=== PATIENT | male | born 1990 | race Caucasian/White ===

== ENCOUNTER → 2021-01-10 | Outpatient (CLI) | payer OTHER ==
[~2021-01-10] MED LIST: ALBU90I INH; ALBU90OI; AZIT500 PO; CEPH500; CEPH500 PO; CRUTCH2 USE; HYDACE5; HYDACE5 PO; IBUP400 PO; IBUP600 PO; Lamisil At24 GM TP; METO50 PO; NAPR500 PO; NICO21TP TOP; OXYACE5T PO; PROM25 PO; Zofran8 MG PO
[2021-01-16 11:15] LABS: Stool Occult Bld Immuno 1 Negative (NEGATIVE)
== END | disposition home or self-care (01) ==
LOC: LAB 22:00 → LAB SHORT 22:00 → LAB FUT 01-12 16:30
PROVIDERS: Nurse Practitioner Family
DX: R10.9 Unspecified abdominal pain (principal)
CPT/HCPCS: G0328

== ENCOUNTER 2021-05-30 09:28 | Day surgery (SDC) | payer OTHER ==
[~2021-05-30] VITALS: Ht 182.9 cm; Wt 160.0 kg
[~2021-05-30 09:28] MED LIST changes: +CELEXA40 M1 PO; +FLUT1DIS5 INH; +LISI20 PO; +SPIR50 PO; +THERA-D2000 UNIT PO
--- NOTE | 2021-05-30 10:48 | NUR ---
Ambulatory in Day Surgery History, Chart, Medications and Allergies reviewed before start of procedure.Patient confirms NPO status and agrees with scheduled surgery.EXPIRATORY WHEEZES T/O, ANESTHESIA NOTIFIED.PT OK PER DR. PEÑA TO RECOVERY FOR APPROX [address]IVE SELF HOME.DR. PEÑA TO WRITE DISCHARGE ORDER SUCH.
--- NOTE | 2021-05-30 11:19 | NUR ---
05/30/21 1119 Nelli Briones HISTORY,CHART, MEDICATIONS AND ALLERGIES REVIEWED BEFORE START OF PROCEDURE. PATIENT CONFIRMS NPO STATUS AND AGREES WITH SCHEDULED PROCEDURE. 3-LEAD EKG REVIEWED WITH PHYSICIAN PRIOR TO START OF PROCEDURE. MONITOR INTACT WITH CONTINUOUS PULSE OXIMETRY AND INTERMITTENT BP. SUPPLEMENTAL O2 TO BE TITRATED THROUGHOUT PROCEDURE TO MAINTAIN O2 SATURATION ABOVE 90%. PATIENT DETERMINED TO BE ASA APPROPRIATE FOR MAC SEDATION PRIOR TO START OF PROCEDURE WITH DR. PEÑA. SEE ANESTHESIA RECORD.
--- NOTE | 2021-05-30 14:01 | NUR ---
PT'S VSS. ATE ALL OF FOOD TRY AND DENIES ANY FURTHER NEEDS AT THIS TIME. PT IS STAYING IN DAY SURGERY FOR 6 HOURS POST OP BECAUSE HE WILL BE DRIVING HIMSELF HOME. WILL CONTINUE TO MONITOR.
--- NOTE | 2021-05-30 14:37 | NUR ---
DR. PEÑA WAS CONSULTED VIA PHONE BY DEEPALI KING TO DISCUSS PT'S D/C PLAN. PT IS STABLE AND MEETS D/C CRITERIA SO DR. PEÑA OKAYED PT TO BE DISCHARGED NOW.
--- NOTE | 2021-05-30 14:39 | NUR ---
Patient up to Ambulate independently. Gait steady. Discharge instructions reviewed with patient. Patient verbalizes understanding. Copy given to patient to take home.
== END 2021-05-30 22:57 | disposition home or self-care (01) ==
LOC: ORSCMMR 09:28 → ORD 11:30 → ORSCMMR 22:57
PROVIDERS: Internal Medicine Gastroenterology
PROC: 0DB98ZX Excision of Duodenum, Via Natural or Artificial Opening Endoscopic, Diagnostic (ICD-10-PCS; principal; 2021-05-30 11:30)
PROC: 0DB48ZX Excision of Esophagogastric Junction, Via Natural or Artificial Opening Endoscopic, Diagnostic (ICD-10-PCS; principal; 2021-05-30 11:30)
PROC: 0DB78ZX Excision of Stomach, Pylorus, Via Natural or Artificial Opening Endoscopic, Diagnostic (ICD-10-PCS; principal; 2021-05-30 11:30)
DX: K90.0 Celiac disease (principal); B96.81 Helicobacter pylori [H. pylori] as the cause of diseases classified elsewhere; K29.70 Gastritis, unspecified, without bleeding; K21.9 Gastro-esophageal reflux disease without esophagitis; K29.80 Duodenitis without bleeding; I10 Essential (primary) hypertension; J45.909 Unspecified asthma, uncomplicated; F17.210 Nicotine dependence, cigarettes, uncomplicated; E66.01 Morbid (severe) obesity due to excess calories; Z68.42 Body mass index [BMI] 45.0-49.9, adult; Z79.899 Other long term (current) drug therapy
CPT/HCPCS: 88305; 88342; J2001; J2250; J2405; J2704; J7120

== ENCOUNTER 2023-03-12 13:23 | Emergency (ER) | payer OTHER ==
[~2023-03-12] VITALS: Ht 182.9 cm; Wt 147.4 kg
[2023-03-12 13:32] VITALS: BP 116/75
[2023-03-12 14:03] LABS: BASOPHILS ABSOLUTE AUTO 0.05 K/mm3 (0.00-0.23); BASOPHILS PERCENT AUTO 0 % (0-2); EOSINOPHILS ABSOLUTE AUTO 0.35 K/mm3 (0.00-0.68); EOSINOPHILS PERCENT AUTO 3 % (0-6); Hematocrit 46.3 % (37.0-53.0); Hemoglobin 15.8 g/dL (13.5-17.5); IMMATURE GRAN ABSOLUTE AUTO 0.05 K/mm3 (0.00-0.10); IMMATURE GRAN PERCENT AUTO 0 % (0-1); LYMPHOCYTES ABSOLUTE AUTO 2.43 K/mm3 (0.84-5.20); LYMPHOCYTES PERCENT AUTO 19 % (21-46); MONOCYTES ABSOLUTE AUTO 0.83 K/mm3 (0.16-1.47); MONOCYTES PERCENT AUTO 6 % (4-13); Mean Corpuscular HGB 31.6 pg (26.0-34.0); Mean Corpuscular HGB Conc 34.1 g/dL (31.5-36.5); Mean Corpuscular Volume 93 fL (80-100); Mean Platelet Volume 9.8 fL (9.1-12.4); NEUTROPHILS ABSOLUTE AUTO 9.35 K/mm3 (1.96-9.15); NEUTROPHILS PERCENT AUTO 72 % (41-73); Platelet Count 302 K/mm3 (150-400); RDW Coefficient Variation 12.5 % (11.7-14.2); RDW Standard Deviation 42.9 fL (35.1-46.3); White Blood Cell Count 13.06 K/mm3 (4.00-11.30)
[2023-03-12 14:42] LABS: Albumin, Blood 3.8 g/dL (3.4-5.0); Bilirubin, Total 0.3 mg/dL (0.1-1.0); Bun/Creatinine Ratio 19.1 (12.0-20.0); Calcium, Blood 8.6 mg/dL (8.5-10.1); Creatinine, Blood 0.84 mg/dL (0.60-1.20); Globulin, Blood 3.7 g/dL (2.2-4.0); Potassium, Blood 4.3 mmol/L (3.5-5.5); Total Protein, Blood 7.5 g/dL (6.4-8.2)
[2023-03-12 15:48] LABS: Source, Urine Clean Catch
[2023-03-12 16:02] LABS: Appearance, Urine Clear (Clear); Bilirubin, Urine Neg (Neg); Blood, Urine Neg (Neg); Color, Urine Yellow (P-Yellow); Glucose Qualitative, Urine Neg (Neg); Ketones, Urine Neg (Neg); Leukocyte Esterase, Urine Neg (Neg); Nitrite, Urine Neg (Neg); Protein, Urine Neg (Neg); Urobilinogen, Urine NORM (Normal)
== END 2023-03-12 16:46 | disposition home or self-care (01) ==
LOC: ER 13:23
PROVIDERS: Student in an Organized Health Care Education/Training Program
DX: M54.50 Low back pain, unspecified (principal); E66.9 Obesity, unspecified; F17.200 Nicotine dependence, unspecified, uncomplicated; Z87.442 Personal history of urinary calculi; Z79.899 Other long term (current) drug therapy; Z68.41 Body mass index [BMI] 40.0-44.9, adult
CPT/HCPCS: 80053; 81003; 83690; 85025; 99284

== ENCOUNTER → 2024-06-28 | Outpatient (CLI) | payer OTHER ==
[2024-06-28 11:54] LABS: BASOPHILS ABSOLUTE AUTO 0.04 K/mm3 (0.00-0.23); BASOPHILS PERCENT AUTO 0 % (0-2); EOSINOPHILS ABSOLUTE AUTO 0.18 K/mm3 (0.00-0.68); EOSINOPHILS PERCENT AUTO 2 % (0-6); Hematocrit 48.9 % (37.0-53.0); Hemoglobin 16.3 g/dL (13.5-17.5); IMMATURE GRAN ABSOLUTE AUTO 0.04 K/mm3 (0.00-0.10); IMMATURE GRAN PERCENT AUTO 0 % (0-1); LYMPHOCYTES ABSOLUTE AUTO 1.54 K/mm3 (0.84-5.20); LYMPHOCYTES PERCENT AUTO 15 % (21-46); MONOCYTES ABSOLUTE AUTO 0.67 K/mm3 (0.16-1.47); MONOCYTES PERCENT AUTO 7 % (4-13); Mean Corpuscular HGB 31.8 pg (26.0-34.0); Mean Corpuscular HGB Conc 33.3 g/dL (31.5-36.5); Mean Corpuscular Volume 95 fL (80-100); Mean Platelet Volume 9.7 fL (9.1-12.4); NEUTROPHILS ABSOLUTE AUTO 7.59 K/mm3 (1.96-9.15); NEUTROPHILS PERCENT AUTO 75 % (41-73); Platelet Count 248 K/mm3 (150-400); RDW Coefficient Variation 12.7 % (11.7-14.2); RDW Standard Deviation 44.9 fL (35.1-46.3); Red Blood Cell Count 5.13 M/mm3 (4.30-5.90); White Blood Cell Count 10.06 K/mm3 (4.00-11.30)
[2024-06-28 12:11] LABS: Albumin, Blood 3.9 g/dL (3.4-5.0); Bilirubin, Total 0.4 mg/dL (0.1-1.0); Bun/Creatinine Ratio 14.9 (12.0-20.0); Calcium, Blood 9.3 mg/dL (8.5-10.1); Creatinine, Blood 0.87 mg/dL (0.60-1.20); Potassium, Blood 4.1 mmol/L (3.5-5.5); Total Protein, Blood 7.9 g/dL (6.4-8.2)
== END | disposition home or self-care (01) ==
LOC: LAB 11:50 → LAB SHORT 11:50
PROVIDERS: Physician Assistant
DX: R07.9 Chest pain, unspecified (principal)
CPT/HCPCS: 80053; 83690; 84484; 85025

== ENCOUNTER 2024-09-07 00:24 | Inpatient (IN) | payer OTHER ==
[~2024-09-07] VITALS: Ht 182.9 cm; Wt 158.8 kg
[2024-09-07] MEDS ORDERED: Albuterol 2.5 MG/3 ML VIAL INH SCH ×2 (00:35→02:45)
[2024-09-07] MEDS ORDERED: Acetaminophen 325 MG TABLET PO ONE (00:40)
[2024-09-07] MEDS ORDERED: Lactated Ringer's 1,000 ML IV ONE (00:40)
[2024-09-07] MEDS ORDERED: MethylPREDNISolone Sod Succ 125 MG Vial IV ONE (00:45)
[2024-09-07] MEDS ORDERED: Ondansetron HCl 2 MG / ML 2ML Vial IV ONE (00:45)
[2024-09-07 00:54] LABS: BASOPHILS ABSOLUTE AUTO 0.05 K/mm3 (0.00-0.23); BASOPHILS PERCENT AUTO 1 % (0-2); EOSINOPHILS ABSOLUTE AUTO 0.05 K/mm3 (0.00-0.68); EOSINOPHILS PERCENT AUTO 1 % (0-6); Hematocrit 46.1 % (37.0-53.0); Hemoglobin 16.1 g/dL (13.5-17.5); IMMATURE GRAN ABSOLUTE AUTO 0.04 K/mm3 (0.00-0.10); IMMATURE GRAN PERCENT AUTO 0 % (0-1); LYMPHOCYTES ABSOLUTE AUTO 1.21 K/mm3 (0.84-5.20); LYMPHOCYTES PERCENT AUTO 12 % (21-46); MONOCYTES ABSOLUTE AUTO 1.54 K/mm3 (0.16-1.47); MONOCYTES PERCENT AUTO 15 % (4-13); Mean Corpuscular HGB 31.9 pg (26.0-34.0); Mean Corpuscular HGB Conc 34.9 g/dL (31.5-36.5); Mean Corpuscular Volume 92 fL (80-100); Mean Platelet Volume 9.3 fL (9.1-12.4); NEUTROPHILS ABSOLUTE AUTO 7.65 K/mm3 (1.96-9.15); NEUTROPHILS PERCENT AUTO 73 % (41-73); Platelet Count 259 K/mm3 (150-400); RDW Coefficient Variation 12.5 % (11.7-14.2); Red Blood Cell Count 5.04 M/mm3 (4.30-5.90); White Blood Cell Count 10.54 K/mm3 (4.00-11.30)
[2024-09-07 01:12] LABS: Bilirubin, Total 0.5 mg/dL (0.1-1.0); Calcium, Blood 9.6 mg/dL (8.5-10.1)
[2024-09-07] MEDS ORDERED: Ketorolac Tromethamine 15mg Vial IV ONE (01:25)
[2024-09-07 01:31] LABS: Influenza B, PCR NEGATIVE (NEGATIVE); Resp Syncytial Virus, PCR NEGATIVE (NEGATIVE); SARS-Cov-2 (COVID-19) PCR, MMC NEGATIVE (NEGATIVE)
[2024-09-07] MEDS ORDERED: Ipratropium Bromide INH 0.02% 0.5 mg/2.5ML Vial INH SCH (02:45)
[2024-09-07] MEDS ORDERED: Mag Sulfate 1 GM/D5% 100ML 100 ML IV ONE (02:45)
[2024-09-07] MEDS ORDERED: BREYNA 160-4.10.3 GM INH (02:54)
[2024-09-07] MEDS ORDERED: Amphetamine Sal20 MG PO (02:55)
[2024-09-07] MEDS ORDERED: PROAIR RESPICL90 MCG INH (02:55)
[2024-09-07] MEDS ORDERED: AMPDEX10 PO (02:55)
[2024-09-07 04:26] LABS: Influenza A, PCR POSITIVE (NEGATIVE)
[2024-09-07] MEDS ORDERED: Ondansetron 4 MG TAB PO PRN (05:25)
[2024-09-07] MEDS ORDERED: Acetaminophen 325 MG TABLET PO PRN (05:25)
[2024-09-07] MEDS ORDERED: FLU VACC TS2024-25(6MOS UP)/PF 45 MCG/0.5 ML SYRINGE IM ONE (05:30)
[2024-09-07] MEDS ORDERED: Ipratropium/Albuterol SulF 2.5-0.5MG/3 ML Amp INH SCH (05:30)
[2024-09-07] MEDS ORDERED: MethylPREDNISolone Sod Succ 125 MG Vial IV SCH (09:00)
[2024-09-07] MEDS ORDERED: PredniSONE 20 MG Tab PO SCH (09:00)
[2024-09-07] MEDS ORDERED: Cholecalciferol 1000 Unit Tablet (=25MCG) PO SCH (09:00)
[2024-09-07] MEDS ORDERED: Citalopram Hydrobromide 20 MG Tab PO SCH (09:00)
[2024-09-07] MEDS ORDERED: Lisinopril 20 MG Tab PO SCH (09:00)
[2024-09-07] MEDS ORDERED: Oseltamivir Phosphate 75 MG Cap PO SCH (09:00)
[2024-09-07] MEDS ORDERED: Spironolactone 50 MG Tab PO SCH (09:00)
[2024-09-07 16:28] VITALS: BP 140/78
--- NOTE | 2024-09-07 16:29 | NUR ---
PT CAME FROM ED. NO CHANGES. PT HAD C/O SOB THIS NURSE CALLED FOR PRN BREATHING TREATMENT WITH EFFECT. PT HAS NO QUESTIONS OR CONCERNSD AT THIS TIME
[2024-09-07 19:51] VITALS: BP 145/64
[2024-09-08 02:50] VITALS: BP 133/75
--- NOTE | 2024-09-08 04:59 | NUR ---
SHIFT SUMMARY; PATIENT SLEPT IN LONG INTERVALS. GIVEN PRN TYLENOL FOR LOW-GRADE TEMP. REMAINS IN DROPLET-CONTACT ISOLATION. BIPAP USED ALL NIGHT. OCC. COUGHING.
[2024-09-08 06:00] LABS: Bun/Creatinine Ratio 21.9 (12.0-20.0); Calcium, Blood 9.3 mg/dL (8.5-10.1); Creatinine, Blood 0.78 mg/dL (0.60-1.20); Potassium, Blood 4.5 mmol/L (3.5-5.5)
[2024-09-08 07:57] VITALS: BP 116/66
[2024-09-08] MEDS ORDERED: Enoxaparin 40 MG/0.4 ML SYR SC SCH (09:00)
[2024-09-08 15:55] VITALS: BP 132/71
--- NOTE | 2024-09-08 16:04 | NUR ---
NO CHANGES IN PT STATUS. PT ON 4LNC TO SUSTAIN ABOVE 95%. pt has periods of sob on ambulation to the bathroom. pt has no chest pain or c/o pain. pt has no questions or concerns at this time
[2024-09-08 19:17] VITALS: BP 121/62
[2024-09-09 04:48] VITALS: BP 115/67
--- NOTE | 2024-09-09 07:41 | NUR ---
SHIFT SUMMARY PT HAS BEEN LYING IN BED COMFORTABLY OVERNIGHT. PT HAS BEEN ON BIPAP OVERNIGHT. HE REMAINS AOX4. NO ACUTE EVENTS OVERNIGHT.
[2024-09-09 08:13] VITALS: BP 115/68
--- NOTE | 2024-09-09 09:00 | NUR ---
pt laying in bed, awake, a/ox4, cooperative with care, follows commands, denies pain, lungs are very dim t/o, resp even and unlabored, cough with deep breath, sats are 93-95 on 3 liters o2 via n/c, hrr, no edema noted, ppp+2, cap refill<3 sec, vs stable, afebrile, no iv, btx4, reports reg bm's and voids, skin c/w/d, maew, up ad benigno in room, camacho, call light in reach.
[2024-09-09] MEDS ORDERED: OSEL75CA PO (16:07)
[2024-09-09] MEDS ORDERED: ALBU2.5V5 INH (16:07)
[2024-09-09] MEDS ORDERED: IPRAT-ALBUT 0.5-3 ML INH (16:09)
[2024-09-09] MEDS ORDERED: Prednisone10 MG PO (16:10)
--- NOTE | 2024-09-09 16:48 | NUR ---
Pt is being discharged to home, new meds faxed to his pharmacy, no iv present, went over discharge instructions with him, he verbalized understanding, does not want a wheelchair out, will ambulate, is waiting on a work release from then will leave with all his belongings.
== END 2024-09-09 17:13 | disposition home or self-care (01) | DRG 193 ==
LOC: ER 00:24 → MEDS 00:25 → ERHOLD 00:25 → MEDS 08:55
PROVIDERS: Internal Medicine; Student in an Organized Health Care Education/Training Program; ADMIT Student in an Organized Health Care Education/Training Program
PROC: 5A09357 Assistance with Respiratory Ventilation, Less than 24 Consecutive Hours, Continuous Positive Airway Pressure (ICD-10-PCS; principal; 2024-09-07)
DX: J10.1 Influenza due to other identified influenza virus with other respiratory manifestations (principal); J96.01 Acute respiratory failure with hypoxia; J45.901 Unspecified asthma with (acute) exacerbation; J44.1 Chronic obstructive pulmonary disease with (acute) exacerbation; E66.01 Morbid (severe) obesity due to excess calories; G47.33 Obstructive sleep apnea (adult) (pediatric); I10 Essential (primary) hypertension; F17.210 Nicotine dependence, cigarettes, uncomplicated; F32.A Depression, unspecified; Z87.442 Personal history of urinary calculi; Z90.49 Acquired absence of other specified parts of digestive tract; Z79.899 Other long term (current) drug therapy
CPT/HCPCS: 0241U; 36415; 71045; 71260; 80048; 80053; 83880; 84484; 85025; 85379; 93005; 93010; 94640; 94644; 94645; 94660; 94664; 94761; 94762; 96361; 96365; 96375; 99285-25; A9270; G0378; J1650; J1885; J2405; J2919; J3475; J7120; J7512; Q9967

== ENCOUNTER 2025-02-27 21:50 | Emergency (ER) | payer OTHER ==
[~2025-02-27] VITALS: Ht 182.9 cm; Wt 146.5 kg
[~2025-02-27 21:50] MED LIST changes: +ALBU2.5V5 INH; +AMPDEX10 PO; +Amphetamine Sal20 MG PO; +BREYNA 160-4.10.3 GM INH; +IPRAT-ALBUT 0.5-3 ML INH; +OSEL75CA PO; +PROAIR RESPICL90 MCG INH; +Prednisone10 MG PO
[2025-02-27 21:57] VITALS: BP 142/88
== END 2025-02-27 23:02 | disposition home or self-care (01) ==
LOC: ER 21:50
DX: S61.210A Laceration without foreign body of right index finger without damage to nail, initial encounter (principal); W26.0XXA Contact with knife, initial encounter; I10 Essential (primary) hypertension; J45.909 Unspecified asthma, uncomplicated; G47.30 Sleep apnea, unspecified; F17.210 Nicotine dependence, cigarettes, uncomplicated; E66.9 Obesity, unspecified; Z68.41 Body mass index [BMI] 40.0-44.9, adult; Z23 Encounter for immunization; Z91.018 Allergy to other foods; Z79.899 Other long term (current) drug therapy
CPT/HCPCS: 90715

== ENCOUNTER 2025-07-03 09:36 | Inpatient (IN) | payer OTHER ==
[~2025-07-03] VITALS: Ht 182.9 cm; Wt 127.0 kg
[~2025-07-03 09:36] MED LIST changes: -ALBU2.5V5 INH; +ALBU2.5V5 NEB; -LISI20 PO; +Zestril30 MG PO
[2025-07-03] MEDS ORDERED: Ipratropium/Albuterol SulF 2.5-0.5MG/3 ML Amp INH ONE (10:25)
[2025-07-03] MEDS ORDERED: Albuterol 2.5 MG/3 ML VIAL INH SCH ×2 (10:25→15:50)
[2025-07-03] MEDS ORDERED: PRED20 PO (10:56)
[2025-07-03] MEDS ORDERED: ALBU90OI INH (10:57)
[2025-07-03 12:46] LABS: Influenza A, PCR NEGATIVE (NEGATIVE); Influenza B, PCR NEGATIVE (NEGATIVE); Resp Syncytial Virus, PCR NEGATIVE (NEGATIVE); SARS-Cov-2 (COVID-19) PCR, MMC NEGATIVE (NEGATIVE)
[2025-07-03] MEDS ORDERED: Magnesium Sulf 2 GM/Water 50ML 50 ML IV ONE (14:50)
[2025-07-03] MEDS ORDERED: Albuterol Soln 2.5 MG/0.5 ML UD INH ONE (14:50)
[2025-07-03] MEDS ORDERED: Albuterol 2.5 MG/3 ML VIAL INH ONE (14:55)
[2025-07-03] MEDS ORDERED: FLU VACC TS2025-26(6MOS UP)/PF 45 MCG/0.5 ML SYRINGE IM SCH (16:10)
[2025-07-03] MEDS ORDERED: Albuterol 2.5 MG/3 ML VIAL INH PRN (16:15)
[2025-07-03 16:16] LABS: BASOPHILS ABSOLUTE AUTO 0.04 K/mm3 (0.00-0.23); BASOPHILS PERCENT AUTO 0 % (0-2); EOSINOPHILS ABSOLUTE AUTO 0.03 K/mm3 (0.00-0.68); EOSINOPHILS PERCENT AUTO 0 % (0-6); Hematocrit 45.7 % (37.0-53.0); Hemoglobin 15.2 g/dL (13.5-17.5); IMMATURE GRAN ABSOLUTE AUTO 0.04 K/mm3 (0.00-0.10); IMMATURE GRAN PERCENT AUTO 0 % (0-1); LYMPHOCYTES ABSOLUTE AUTO 0.94 K/mm3 (0.84-5.20); LYMPHOCYTES PERCENT AUTO 10 % (21-46); MONOCYTES ABSOLUTE AUTO 0.21 K/mm3 (0.16-1.47); MONOCYTES PERCENT AUTO 2 % (4-13); Mean Corpuscular HGB Conc 33.3 g/dL (31.5-36.5); Mean Corpuscular Volume 95 fL (80-100); NEUTROPHILS ABSOLUTE AUTO 8.22 K/mm3 (1.96-9.15); NEUTROPHILS PERCENT AUTO 87 % (41-73); NRBC ABSOLUTE 0.00 K/mm3 (0.00-0.02); NRBC Auto 0.0 /100 WBC (0.0-0.2); Platelet Count 239 K/mm3 (150-400); RDW Coefficient Variation 12.0 % (11.7-14.2); RDW Standard Deviation 42.2 fL (35.1-46.3)
[2025-07-03 16:37] LABS: Alanine Aminotransfer (ALT/SGP 45.0 U/L (12-78); Albumin, Blood 3.9 g/dL (3.4-5.0); Albumin/Globulin Ratio 1.0 (0.8-1.8); Anion Gap 9.0 mmol/L (3-11); Aspartate Aminotrans (AST/SGOT 21.0 U/L (12-37); Bilirubin, Total 0.5 mg/dL (0.1-1.0); Blood Urea Nitrogen 9.0 mg/dL (8-24); CO2, Blood 25.0 mmol/L (21-32); Calcium, Blood 9.4 mg/dL (8.5-10.1); Chloride, Blood 105.0 mmol/L (98-108); Creatinine, Blood 0.66 mg/dL (0.60-1.20); Globulin, Blood 3.9 g/dL (2.2-4.0); Glucose, Blood 131.0 mg/dL (70-99); Potassium, Blood 4.2 mmol/L (3.5-5.5); Sodium, Blood 135.0 mmol/L (136-145); Total Protein, Blood 7.8 g/dL (6.4-8.2)
[2025-07-03 17:43] VITALS: BP 143/80
--- NOTE | 2025-07-03 18:07 | NUR ---
PT ARRIVED TO MEDICAL FLOOR AT APPROX 1735. ORIENTED TO ROOM AND CALL LIGHT. PT JUST FINISHED BREATHING TREATMENT. DENIES CHEST PAIN. CHEST RISE AND FALL IS SYMMETRICAL. SOME SOB NOTED AT REST. A/OX4. ANSWERING QUESTIONS APPRORIATELY. NO ACUTE NEEDS AT THIS TIME.
[2025-07-03 19:26] VITALS: BP 149/67
[2025-07-03] MEDS ORDERED: Ipratropium/Albuterol SulF 2.5-0.5MG/3 ML Amp INH SCH (20:00)
[2025-07-04] VITALS (7 sets, daily range): BP systolic 112–154; BP diastolic 50–74
--- NOTE | 2025-07-04 05:43 | NUR ---
SHIFT SUMMARY PATIENT IS ALERT AND ORIENTED. PATIENT HAS HAD NO ACUTE EVENTS THIS SHIFT. VITAL SIGNS REVIEWED. PATIENT HAS BEEN CPAP COMPLIANT THIS SHIFT. PATIENT HAS BEEN SATTING 91 AND ABOVE MOST OF SHIFT. PATIENT HAS BEEN IND IN ROOM THIS SHIFT. PATIENT HAS NO COMPLAINTS OF SOB, NAUSEA, VOMITTING OR PAIN THIS SHIFT. BED IN LOCKED AND LOWEST POSITION. CALL LIGHT IN PLACE.
[2025-07-04] MEDS ORDERED: Enoxaparin 40 MG/0.4 ML SYR SC SCH (09:00)
[2025-07-04] MEDS ORDERED: Cholecalciferol 1000 Unit Tablet (=25MCG) PO SCH (09:00)
[2025-07-04] MEDS ORDERED: Amphet Asp/Amphet/D-Amphet 5 MG Tab PO SCH ×2 (09:00→12:00)
--- NOTE | 2025-07-04 17:02 | NUR ---
SHIFT SUMMARY PT AOX4, COOPERATIVE, ABLE TO MAKE NEEDS KNOWN. PT IS IND IN ROOM, ON ROOM AIR WITH OCCASION O2 USE WHEN SATS DROP. TOLERATING MEDICATIONS. CONTINENT, ON TELE. PT DOES SEEM TO SNACK OFTEN, EDUCATION TO IMPORTER OR EXPORTER AND PT TO LIMIT SNACKING DUE TO LIMITED SOURCES ON FLOOR. NO OTHER ACUTE EVENTS TOOK PLACE THIS SHIFT. BED IN LOWEST POSITION, CALL LIGHT WITHIN REACH.
[2025-07-05 04:00] VITALS: BP 125/73
--- NOTE | 2025-07-05 04:53 | NUR ---
34-year-old, male patient with PMH of asthma, HTN, depression, celiac disease, and appendectomy was admitted with worsening sob for a week. Patient denied having chest pain, n/v, f/c, dizziness, headache and pain. Patient expressed having sob with excertion with O2@3L via NC. Reported having multiple BM yesterday but no discomfort. Complied with scheduled medications and No PRn was given during the shift. No distress was noted and acute changes noted during the shift. Call lozano within the reach and fall education was provided. Frequent round was implemented to prevent falls/injuries.
[2025-07-05 07:26] VITALS: BP 144/81
[2025-07-05 11:03] VITALS: BP 162/79
[2025-07-05 15:36] VITALS: BP 142/82
--- NOTE | 2025-07-05 17:39 | NUR ---
SHIFT SUMMARY PT AOX4, COOPERATIVE, ABLE TO MAKE NEEDS KNOWN. PT IS IND IN ROOM, VOIDING APPROPRIATELY. 2 BMS TODAY PT REPORTS. ON 1-2L O2 CURRENTLY, TITRATING DOWN PRN. THIS AM, PT HAD SEVERE COUGH, NOT MUCH IN PM. TOLERATING MEDICATIONS. REFUSED NOON ADDERALL. ON CONT PULSE OX, SATTING APPROX 90-92% ON SUPPLEMENTAL O2. PT IS CONSCIOUS OF LIMITING SNACKS CONSUMED. BED IN LOWEST POSITION, CALL LIGHT WITHIN REACH.
[2025-07-05 19:08] VITALS: BP 140/66
[2025-07-06 00:25] VITALS: BP 149/89
[2025-07-06 04:50] VITALS: BP 103/55
--- NOTE | 2025-07-06 05:04 | NUR ---
SHIFT SUMMARY- Patient was awake most of the shift watching is phone. He did rest around 0300 with CPAP on. No shift events to report. Medications: Whole with water. Ambulation: Independent Urination/Defecation: Continent.
[2025-07-06 07:18] VITALS: BP 134/74
[2025-07-06 11:53] VITALS: BP 150/85
[2025-07-06] MEDS ORDERED: AZIT250 PO (12:42)
[2025-07-06] MEDS ORDERED: OMEP20ER PO (12:42)
[2025-07-06] MEDS ORDERED: PRED20 PO (12:43)
--- NOTE | 2025-07-06 13:05 | NUR ---
PT DISCHARGED THE PT VERBALIZED UNDERSTANDING OF THE DC INSTRUCTIONS.PTS PRESCRIPTIONS FAXED TO [facility] HE REQUESTED. THE PT DECLINED WHEELCHAIR AND AMBULATED OUT WITH HIS BELONGINGS STEADY ON HIS FEET. PT WAS REMINDED TO CALL HID PCP FOR A FOLLOW UP APPOINTMENT.
== END 2025-07-06 13:25 | disposition home or self-care (01) | DRG 189 ==
LOC: ER 09:36 → MEDS 09:37
PROVIDERS: Emergency Medicine; ADMIT Internal Medicine
PROC: 5A09357 Assistance with Respiratory Ventilation, Less than 24 Consecutive Hours, Continuous Positive Airway Pressure (ICD-10-PCS; principal; 2025-07-04)
DX: J96.01 Acute respiratory failure with hypoxia (principal); J45.901 Unspecified asthma with (acute) exacerbation; G47.30 Sleep apnea, unspecified; I10 Essential (primary) hypertension; F17.210 Nicotine dependence, cigarettes, uncomplicated; G47.33 Obstructive sleep apnea (adult) (pediatric); E66.01 Morbid (severe) obesity due to excess calories; Z90.49 Acquired absence of other specified parts of digestive tract; Z68.38 Body mass index [BMI] 38.0-38.9, adult; Z79.899 Other long term (current) drug therapy; Z79.52 Long term (current) use of systemic steroids; Z71.6 Tobacco abuse counseling
CPT/HCPCS: 71046; 80053; 85025; 87637; 94640; 94660; 94762; 96365; 99285-25; A9270; G0378; J2470; J2919; J3475; J7512